=== PATIENT | male | born 1975 | race African-American/Black ===

== ENCOUNTER 2017-02-19 13:32 | Emergency (ER) | payer OTHER ==
[~2017-02-19] VITALS: Ht 185.4 cm; Wt 106.6 kg
[~2017-02-19 13:32] MED LIST: VISTARIL PO
[2017-02-19] MEDS ORDERED: NORVASC PO (13:37)
[2017-02-19] MEDS ORDERED: FORTAMET500 MG PO (13:38)
[2017-02-19] MEDS ORDERED: PRINIVIL20 M1 PO (13:38)
[2017-02-19] MEDS ORDERED: ALBUTEROL17 GM INH (13:38)
== END 2017-02-19 14:00 | disposition home or self-care (01) ==
LOC: SED 13:32
DX: Z76.0 Encounter for issue of repeat prescription (principal); E11.9 Type 2 diabetes mellitus without complications; I10 Essential (primary) hypertension; G43.909 Migraine, unspecified, not intractable, without status migrainosus; F17.210 Nicotine dependence, cigarettes, uncomplicated; Z79.899 Other long term (current) drug therapy
CPT/HCPCS: 99281

== ENCOUNTER 2017-02-19 14:19 | Emergency (ER) | payer OTHER ==
[~2017-02-19] VITALS: Ht 185.4 cm; Wt 106.6 kg
[~2017-02-19 14:19] MED LIST changes: +ALBUTEROL17 GM INH; +FORTAMET500 MG PO; +NORVASC PO; +PRINIVIL20 M1 PO
== END 2017-02-19 14:44 | disposition home or self-care (01) ==
LOC: CFTX 14:19 → CED 14:19 → CFTX 14:38
DX: J06.9 Acute upper respiratory infection, unspecified (principal); Z76.0 Encounter for issue of repeat prescription; E11.9 Type 2 diabetes mellitus without complications; I10 Essential (primary) hypertension; J45.909 Unspecified asthma, uncomplicated; F17.210 Nicotine dependence, cigarettes, uncomplicated; Z79.899 Other long term (current) drug therapy
CPT/HCPCS: 99283

== ENCOUNTER 2017-03-13 05:15 | Emergency (ER) | payer OTHER ==
[~2017-03-13] VITALS: Ht 185.4 cm; Wt 105.2 kg
== END 2017-03-13 06:16 | disposition home or self-care (01) ==
LOC: SED 05:15
DX: M54.41 Lumbago with sciatica, right side (principal); E11.9 Type 2 diabetes mellitus without complications; I10 Essential (primary) hypertension; F17.200 Nicotine dependence, unspecified, uncomplicated
CPT/HCPCS: 96372; 99283; J1170